=== PATIENT | female | born 1935 | race Caucasian/White ===

== ENCOUNTER 2016-07-31 06:29 | Day surgery (SDC) | payer MEDICARE, BC ==
[~2016-07-31 06:29] MED LIST: ASPIR 8181 M1 PO; COMPLETE SENIO1 EACH PO; COUMADIN5 M2 PO; COUMADIN5 MG PO; GREEN TEA1 CAP PO; HYDROCODON-ACE1 EA16 PO; KRILL OIL 1,001 EAC2 PO; METOPROLOL SUCC25 M1 PO; MOBIC15 M2 PO; OMEGA 31 CAP PO; OMEPRAZOLE40 M2 PO; PAXIL40 M1 PO; PROLIA60 MG/1 M1 SC; SYMBICORT 80-41 PUFF INH; VITAMIN B-121000 MC1 PO; VITAMIN D35000 UNI3 PO; ZOCOR40 M1 PO
[2016-07-31 07:36] LABS: BASO % 0.9 % (0-2); EOSINOPHIL ABSOLUTE COUNT 0.2 tho/cmm (0.0-0.7); HGB-HEMOGLOBIN 11.5 gm/dl (12.0-15.5); LYMPH % 28.7 % (20-45); LYMPH ABSOLUTE COUNT 1.3 tho/cmm (0.8-4.5); MCH (MEAN CORPUSCULAR HGB) 29.6 pg (28.0-32.0); MCHC MEAN CORPUSCULAR HGB CONC 32.9 % (32.0-36.0); MCV (MEAN CELL VOLUME) 90.2 fl (82.0-96.0); MEAN PLATELET VOLUME 10.9 cmc (9.4-12.4); MONO % 11.8 % (0-12); MONOCYTE ABSOLUTE COUNT 0.5 tho/cmm (0.0-1.2); NEUTROPHIL ABSOLUTE COUNT 2.5 tho/cmm (1.6-8.0); NEUTROPHIL-AUTOMATED 2.5 tho/cmm (1.6-8.0); NEUTROPHILS % 54.6 % (40-80); PLATELET COUNT 187 tho/cmm (150-450); RED BLOOD COUNT 3.88 mil/cmm (4.00-5.20); RED CELL DISTRIBUTION WIDTH 14.3 % (12.4-16.4); WHITE BLOOD COUNT 4.5 tho/cmm (4.0-10.0)
[2016-07-31 07:37] LABS: INR 0.9 INR (0.9-1.1); PROTHROMBIN TIME 10.6 SECONDS (9.0-13.6)
[2016-07-31 07:44] LABS: ANION GAP 10 mmol/L (0-20); BLOOD UREA NITROGEN 17 mg/dl (6-24); CARBON DIOXIDE-VENOUS 28 mmol/L (22-32); CHLORIDE 110 mmol/l (96-110); CREATININE 0.46 mg/dl (0.50-1.10); GLUCOSE 97 mg/dL (70-110); POTASSIUM 3.9 mmol/L (3.7-5.1); SODIUM 144 mmol/L (135-145); eGFR VALUE FOR BLACK >90 mL/Min
== END 2016-07-31 10:12 ==
LOC: ENDOS 06:29 → SHSC 06:30 → ENDOS 07:53
PROVIDERS: Anesthesiology
PROC: 0DB58ZX Excision of Esophagus, Via Natural or Artificial Opening Endoscopic, Diagnostic (ICD-10-PCS; principal; 2016-07-31)
PROC: 0D758ZZ Dilation of Esophagus, Via Natural or Artificial Opening Endoscopic (ICD-10-PCS; 2016-07-31)
DX: K22.70 Barrett's esophagus without dysplasia (principal); K31.7 Polyp of stomach and duodenum; M06.9 Rheumatoid arthritis, unspecified; E07.9 Disorder of thyroid, unspecified; F41.9 Anxiety disorder, unspecified; F32.9 Major depressive disorder, single episode, unspecified; J44.9 Chronic obstructive pulmonary disease, unspecified; K21.9 Gastro-esophageal reflux disease without esophagitis; I10 Essential (primary) hypertension; E78.5 Hyperlipidemia, unspecified; Z79.01 Long term (current) use of anticoagulants; Z79.1 Long term (current) use of non-steroidal anti-inflammatories (NSAID); Z79.82 Long term (current) use of aspirin; Z79.899 Other long term (current) drug therapy; Z87.891 Personal history of nicotine dependence; Z86.718 Personal history of other venous thrombosis and embolism; Z98.41 Cataract extraction status, right eye; Z98.42 Cataract extraction status, left eye; Z96.1 Presence of intraocular lens; Z98.890 Other specified postprocedural states
CPT/HCPCS: C1769